=== PATIENT | male | born 2000 | race Caucasian/White ===

== ENCOUNTER → 2023-11-19 | Emergency (ER) | payer BC | END | disposition left against medical advice (07) | LOC: ER 21:27 | DX: K08.89 Other specified disorders of teeth and supporting structures (principal); Z53.21 Procedure and treatment not carried out due to patient leaving prior to being seen by health care provider ==

== ENCOUNTER 2023-11-23 16:54 | Emergency (ER) | payer BC ==
[~2023-11-23] VITALS: Ht 190.5 cm; Wt 72.6 kg
[2023-11-23 19:00] VITALS: BP 129/66; TEMP 98.2; O2SAT 97
== END 2023-11-23 19:01 | disposition home or self-care (01) ==
LOC: ER 16:57
DX: N50.811 Right testicular pain (principal); G40.909 Epilepsy, unspecified, not intractable, without status epilepticus
CPT/HCPCS: 76870-TC

== ENCOUNTER 2024-05-01 10:04 | Emergency (ER) | payer BC ==
[~2024-05-01] VITALS: Ht 188 cm; Wt 72.6 kg
[2024-05-01 10:15] VITALS: BP 116/65; TEMP 98.3
[2024-05-01] MEDS: ACETAMINOPHEN 325 MG TABLET PO ONE (11:40)
[2024-05-01 13:07] VITALS: O2SAT 98
== END 2024-05-01 13:09 | disposition home or self-care (01) ==
LOC: ER 10:04
DX: M25.562 Pain in left knee (principal); G40.909 Epilepsy, unspecified, not intractable, without status epilepticus; M41.9 Scoliosis, unspecified
CPT/HCPCS: 73564-TC